=== PATIENT | male | born 1950 | race Caucasian/White ===

== ENCOUNTER 2017-11-14 14:16 | Outpatient (CLI) | payer OTHER ==
[~2017-11-14] VITALS: Ht 152.4 cm; Wt 98.6 kg
[2017-11-14 14:24] VITALS: BP 135/85; PULSE 84; RESP 16; Ht 152.4 cm; Wt 98.6 kg
[2017-11-14] MEDS ORDERED: LEVO150T67 PO (14:36)
[2017-11-14] MEDS ORDERED: HYDR25TA6 PO (14:36)
[2017-11-14] MEDS ORDERED: TAMS0.4C2 PO (14:36)
[2017-11-14] MEDS ORDERED: METO-448 PO (14:36)
--- NOTE | 2017-11-14 23:20 | CONS ---
DATE OF CONSULTATION: 11/14/[facility] INITIAL OUTPATIENT CONSULTATION NOTE PLACE OF SERVICE: [facility]. REFERRING PHYSICIAN: Zay Lewis MD and Remberto Enrique Dear Doctors Joshua and Klaus: Thank you very much for allowing us to participate in the care of this very pleasant gentleman and his wonderful family. REASON FOR CONSULTATION: Gallbladder malignancy. HISTORY OF PRESENT ILLNESS: The patient is a very pleasant 67-year-old gentleman who underwent a laparoscopic cholecystectomy that had to be converted to open cholecystectomy due to severe scarring of the gallbladder on 09/01/2017 by you, Dr. Lewis at [facility]. The final pathology unfortunately is showing evidence of malignancy in the specimen, with the final diagnosis being invasive adenocarcinoma, well to moderately differentiated, that extends through the muscularis propria, but no evidence of extension beyond the serosa. Note that the cystic duct was involved by high-grade dysplasia and invasive adenocarcinoma, and the full extent of the margin could not be assessed. No lymph nodes were seen. 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 The final staging of this disease was a T2a NX MX. Patient has done well postoperatively and has had no obvious complications from the surgery itself. 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 When I met him today, he did not complain of any issues with significant pain, changes in his appetite, changes in weight, change in bowel or bladder habits and no blood in the stool or urine. He reports life having fairly returned back to normal for him. His workup so far has included laboratory values with significant level of CA 19-9 at 39 on 08/29/2017. Note that his platelet count was 167 in August of 2017, and his creatinine was 1.01. Albumin at that time was 3.5. He has also had several imaging studies, the most recent of which was a PET CT scan that was done on 10/12/2017 that showed areas of mildly increased metabolic activity in the abby hepatis region, possibly related to prior surgery; residual neoplastic involvement could not be ruled out. There were likely post-surgical changes in the right anterior lateral abdominal wall as well. No other abnormal foci of hypermetabolic activity were seen. COMORBIDITIES: 1. 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 2. Pilonidal cyst surgery at age 23 as above. 3. Venous stasis ulcers in the right leg which have healed, but took a long time to do so. 4. Chronic need for use of elastic stockings since age 23. 5. Hypertension. 6. Hypothyroidism. 7. BMI of 42.5. ALLERGIES: NO KNOWN DRUG ALLERGIES. HOME MEDICATIONS: Carefully reviewed and recorded in the electronic health record system. SOCIAL HISTORY: The patient lives with his family. He has 2 children. 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 He does not report any significant drinking, smoking or intravenous drug use. FAMILY HISTORY: No mention of major medical, surgical or oncologic problems in the family. REVIEW OF SYSTEMS: Other than the above-mentioned, there are no other pertinent positives or pertinent negatives in a complete 14-point review of systems. PHYSICAL EXAMINATION: GENERAL: The patient appears to be a very pleasant gentleman of [place] descent, appearing stated age, sitting in a chair comfortably and in no acute distress. BMI is 42.5. VITAL SIGNS: Normal with the exception of temperature of 97.5 and a blood pressure 135/85. HEENT: His head is normocephalic and atraumatic. His extraocular muscles and hearing are grossly intact bilaterally and symmetrically. His sclerae are nonicteric. His oral cavity is clear, and his oral mucosa appeared to be pink and moist. He has fair dentition. NECK: Supple. There is no lymphadenopathy or JVD. There is no submental, submandibular or supraclavicular lymphadenopathy. CHEST: Rises symmetrically with each breath, and he is breathing comfortably. There are no audible wheezes, rales or rhonchi on the gross exam. His pulses are palpable in the carotid region bilaterally and symmetrically. HEART: His radial pulse is palpable in his right wrist. EXTREMITIES: Lower extremities contain trace pitting edema around the ankles bilaterally and symmetrically. Patient is wearing stockings. ABDOMEN: Soft, nondistended and nontender. There is a well-healed small right upper quadrant incision that appears to be healing well without any evidence of erythema, edema, discharge or hernia. There is no organomegaly, caput medusae or engorged subcutaneous veins. There are no peritoneal signs or guarding. SKIN: Appears to be pink and feels warm to touch. NEUROLOGIC: He is awake, alert and follows commands appropriately. LABORATORY VALUES: As above. IMAGING: As above. Note that I personally reviewed all the available images including the preoperative images and I agree in general with their overall reported findings. Note that a very careful evaluation of the preoperative images did not demonstrate any obvious signs of a mass process. The postoperative PET CT also was carefully reviewed and there is mild activity in the gallbladder bed, as well as in the right upper quadrant incision site, but no other obvious areas, including no active abnormal areas in the head region. 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 The patient clinically appears to be doing very well after his gallbladder surgery. The PET CT that was done, unfortunately was done rather soon after his surgery and therefore it is a bit difficult to definitively say whether there is residual tumor in the gallbladder bed versus the normal inflammatory process that we see postoperatively. I spent quite a bit of time with the patient describing the national standards in this situation, which would be to perform completion radical cholecystectomy in select group of patients, which he is a borderline candidate given his operative description of the issue, as well as his inferior vena cava thrombosis. Something that would help us in delineating the clinical picture would be a PET CT scan that should be done around now. We can compare this result with the previous PET CT to see if there were any changes in the area of mild uptake in the gallbladder bed. The patient otherwise could potentially undergo an attempt at completion radical cholecystectomy, but with the understanding that there is more than normal chance that the operation could be converted to a hepaticojejunostomy with complete bile duct resection, if there was evidence of malignancy and if the patient could still undergo the procedure given his cavernous transformation. I also very clearly explained to him that there is no good data that suggests significant gain in survival with this procedure, and that the data is a bit controversial when it comes to complicated gallbladder malignancies such as his. Something that would be beneficial for all of us, would be for the patient to have a discussion with medical oncology and potentially with radiation oncology as well, and have a multidisciplinary tumor board presentation of the patient's information. I explained all this in detail with the patient and answered all his questions. The patient was candid with me and relayed his mistrust of medical community in general, given his prior experiences, but he appeared to understand what I was trying to communicate to him and was in general agreeable with the proposed plans. With above assessments, I have recommended the followin. Repeat PET CT. 2. Oncology consultation. 3. Consideration for radiation oncology consultation. 4. Multidisciplinary tumor board presentation. 5. Follow up with us after above is done. Note that I have asked my office to kindly request for expedited authorizations for all of these and our goal would be to have a visit with the patient and hopefully with family members this time in the middle of November to discuss all the findings and make finalized plans regarding next steps of care. Thank you again for allowing us to participate in the care of this very pleasant gentleman and I am certain his wonderful family. If there are any questions, please feel free to contact me at [phone]. NATURE OF PRESENTING PROBLEM: High risk. COMPLEXITY OF DECISION MAKING: High complexity. Dictated By: SONALI GARCIA/MALACHI Conf#: [id number] DID#: [id number] CC: Remberto Enrique; Zay Lewis;*EndCC* MTDD
== END 2017-11-14 16:42 | disposition home or self-care (01) ==
LOC: HPC 14:16
PROVIDERS: ATTEND Transplant Surgery
DX: C23 Malignant neoplasm of gallbladder (principal); I10 Essential (primary) hypertension; E03.9 Hypothyroidism, unspecified; Z86.718 Personal history of other venous thrombosis and embolism
CPT/HCPCS: G0463

== ENCOUNTER 2018-01-11 10:32 | Outpatient (CLI) | END 2018-01-11 15:51 | disposition home or self-care (01) ==